=== PATIENT | male | born 1950 ===

== ENCOUNTER 2019-06-10 21:46 | Emergency (ER) | payer SELFPAY ==
--- NOTE | 2019-06-10 22:56 | EDPHYS ---
Physician Documentation [facility] Name: Arnol Chin Age: 68 yrs Sex: Male : 1950 Arrival Date: 06/10/2019 Time: 21:48 Bed 19 Private MD: ED Physician Kwame Sosa HPI: 06/10 22:51 This 68 yrs old Male presents to ER via Ambulatory with complaints of High jessa Blood Pressure. 22:51 The patient has elevated blood pressure and discovered this at home. Onset: The jessa symptoms/episode began/occurred just prior to arrival. Modifying factors: The symptoms are aggravated by movement, The symptoms are alleviated by remaining still. Associated signs and symptoms: Pertinent positives: dizziness. Severity of symptoms: At its worst the blood pressure was mild, in the emergency department the blood pressure is unchanged. The patient has not experienced similar symptoms in the past. Historical: - Allergies: 21:55 No Known Allergies; aa1 - Home Meds: 21:55 Metoprolol Tartrate Oral [Active]; Ramipril Oral [Active]; Singulair Oral [Active]; aa1 - PMHx: 21:55 Hypertension; aa1 - PSHx: 21:55 mitral valve repair; sinus surgery; foot surgery; aa1 - Immunization history:: Adult Immunizations up to date. - Social history:: Smoking status: Patient/guardian denies using tobacco, Patient uses Patient/guardian denies using alcohol, street drugs. - Ebola Screening: : Patient negative for fever greater than or equal to 101.5 degrees Fahrenheit, and additional compatible Ebola Virus Disease symptoms Patient denies exposure to infectious person. ROS: 22:52 Constitutional: Negative for fever, chills, and weight loss, Eyes: Negative for injury, jessa pain, redness, and discharge, ENT: Negative for injury, pain, and discharge, Neck: Negative for injury, pain, and swelling, Cardiovascular: Negative for chest pain, palpitations, and edema, Respiratory: Negative for shortness of breath, cough, wheezing, and pleuritic chest pain, Abdomen/GI: Negative for abdominal pain, nausea, vomiting, diarrhea, and constipation, Back: Negative for injury and pain, : Negative for injury, bleeding, discharge, and swelling, MS/Extremity: Negative for injury and deformity, Skin: Negative for injury, rash, and discoloration, Neuro: Negative for headache, weakness, numbness, tingling, and seizure, Psych: Negative for depression, anxiety, suicide ideation, homicidal ideation, and hallucinations, Allergy/Immunology: Negative for hives, rash, and allergies, Endocrine: Negative for neck swelling, polydipsia, polyuria, polyphagia, and marked weight changes, Hematologic/Lymphatic: Negative for swollen nodes, abnormal bleeding, and unusual bruising. Exam: 22:52 Constitutional: This is a well developed, well nourished patient who is awake, alert, jessa and in no acute distress. Head/Face: Normocephalic, atraumatic. Eyes: Pupils equal round and reactive to light, extra-ocular motions intact. Lids and lashes normal. Conjunctiva and sclera are non-icteric and not injected. Cornea within normal limits. Periorbital areas with no swelling, redness, or edema. ENT: Nares patent. No nasal discharge, no septal abnormalities noted. Tympanic membranes are normal and external auditory canals are clear. Oropharynx with no redness, swelling, or masses, exudates, or evidence of obstruction, uvula midline. Mucous membranes moist. Neck: Trachea midline, no thyromegaly or masses palpated, and no cervical lymphadenopathy. Supple, full range of motion without nuchal rigidity, or vertebral point tenderness. No Meningismus. Chest/axilla: Normal chest wall appearance and motion. Nontender with no deformity. No lesions are appreciated. Cardiovascular: Regular rate and rhythm with a normal S1 and S2. No gallops, murmurs, or rubs. Normal PMI, no JVD. No pulse deficits. Respiratory: Lungs have equal breath sounds bilaterally, clear to auscultation and percussion. No rales, rhonchi or wheezes noted. No increased work of breathing, no retractions or nasal flaring. Abdomen/GI: Soft, non-tender, with normal bowel sounds. No distension or tympany. No guarding or rebound. No evidence of tenderness throughout. Back: No spinal tenderness. No costovertebral tenderness. Full range of motion. Male : Normal genitalia with no discharge or lesions. Skin: Warm, dry with normal turgor. Normal color with no rashes, no lesions, and no evidence of cellulitis. MS/ Extremity: Pulses equal, no cyanosis. Neurovascular intact. Full, normal range of motion. Neuro: Awake and alert, GCS 15, oriented to person, place, time, and situation. Cranial nerves II-XII grossly intact. Motor strength 5/5 in all extremities. Sensory grossly intact. Cerebellar exam normal. Normal gait. Psych: Awake, alert, with orientation to person, place and time. Behavior, mood, and affect are within normal limits. Vital Signs: 21:53 BP 163 / 78; Pulse 54; Resp 16; Temp 96; Pulse Ox 96% ; Weight 97.52 kg; Height 6 ft. 1 aa1 in. (185.42 cm); Pain /10; 22:16 BP 157 / 83; Pulse 64; Resp 18; Pulse Ox 97% on R/A; wh 23:00 BP 148 / 86 Supine; Pulse 73; Resp 18; Pulse Ox 98% on R/A; mw2 23:02 BP 144 / 81 Sitting; Pulse 73; Resp 18; Pulse Ox 97% on R/A; mw2 23:04 BP 138 / 84 Standing; Pulse 81; Resp 19; Pulse Ox 100% ; 2 06/11 00:30 BP 147 / 77; Pulse 67; Resp 18; Pulse Ox 98% ; wh 06/10 21:53 Body Mass Index 28.37 (97.52 kg, 185.42 cm) aa1 MDM: 06/10 22:39 Patient medically screened. [facility] 22:53 Data reviewed: vital signs, nurses notes, EKG. [facility] 06/10 23:04 Order name: Basic Metabolic Panel; Complete Time: 00:14 [facility] 06/10 23:04 Order name: CBC with Diff; Complete Time: 00:14 [facility] 06/10 23:04 Order name: LFT's; Complete Time: 00:14 [facility] 06/10 23:04 Order name: Magnesium; Complete Time: 00:14 [facility] 06/10 23:04 Order name: NT PRO-BNP; Complete Time: 00:14 [facility] 06/10 23:04 Order name: PT-INR; Complete Time: 00:14 [facility] 06/10 22:51 Order name: EKG; Complete Time: 22:51 [facility] 06/10 22:51 Order name: EKG - Nurse/Tech; Complete Time: 23:12 [facility] 06/10 22:51 Order name: Orthostatics; Complete Time: 23:07 [facility] 06/10 23:04 Order name: Troponin (emerg Dept Use Only); Complete Time: 00:14 [facility] 06/10 23:04 Order name: XRAY Chest (1 view) [facility] 06/11 00:31 Order name: CBC Smear Scan [facility] 06/10 23:04 Order name: Cardiac monitoring; Complete Time: 23:12 [facility] 06/10 23:04 Order name: IV Saline Lock; Complete Time: 23:12 [facility] 06/10 23:04 Order name: Labs collected and sent; Complete Time: 23:12 [facility] 06/10 23:04 Order name: O2 Per Protocol; Complete Time: 23:07 [facility] 06/10 23:04 Order name: O2 Sat Monitoring; Complete Time: 23:07 [facility] Administered Medications: 23:30 Drug: Meclizine 25 mg Route: PO; 06/11 00:42 Follow up: Response: No adverse reaction 06/10 23:30 Drug: NS 0.9% 500 ml Route: IV; Rate: bolus; Site: right antecubital; 06/11 00:42 Follow up: Response: No adverse reaction; IV Status: Completed infusion Disposition: 06/11/19 00:15 Discharged to Home. Impression: Essential (primary) hypertension, Dizziness and giddiness, Vertiginous syndromes in diseases classified elsewhere, unspecified ear, Elevated white blood cell count. - Condition is Stable. - Discharge Instructions: Dizziness, Hypertension, Hypertension, Tedf-jr-Apre, How to Take Your Blood Pressure, Ewet-nj-Jhrl, Vertigo, Edkd-ik-Xswt, Dizziness, Illa-ut-Xawk, Managing Your Hypertension. - Prescriptions for Meclizine 25 mg Oral Tablet - take 1 tablet by ORAL route every 8 hours As needed; 30 tablet. Zofran 4 mg Oral Tablet - take 1 tablet by ORAL route every 12 hours As needed; 20 tablet. - Medication Reconciliation Form, Thank You Letter, Antibiotic Education, Prescription Opioid Use form. - Follow up: Private Physician; When: 2 - 3 days; Reason: Recheck today's complaints, Continuance of care, Re-evaluation by your physician. Follow up: Lalo Boston; When: 2 - 3 days; Reason: Recheck today's complaints, Continuance of care, Re-evaluation by your physician. - Problem is new. - Symptoms have improved. Signatures: Dispatcher [employer] EDAysha Klein RN RN aa1 Kwame Sosa MD MD cha Aminata Panda Corrections: (The following items were deleted from the chart) 06/10 23:03 22:54 06/10/2019 22:54 Discharged to Home. Impression: Essential (primary) jessa hypertension; Vertiginous syndromes in diseases classified elsewhere, unspecified ear. Condition is Stable. Forms are Medication Reconciliation Form, Thank You Letter, Antibiotic Education, Prescription Opioid Use. Follow up: Private Physician; When: 2 - 3 days; Reason: Recheck today's complaints, Continuance of care, Re-evaluation by your physician. Problem is new. Symptoms have improved. jessa 06/11 00:44 00:15 06/11/2019 00:15 Discharged to Home. Impression: Essential (primary) wh hypertension; Dizziness and giddiness; Vertiginous syndromes in diseases classified elsewhere, unspecified ear; Elevated white blood cell count. Condition is Stable. Discharge Instructions: Dizziness, Hypertension, Hypertension, Pcvu-[id number], How to Take Your Blood Pressure, Ztom-xy-Keyw, Vertigo, Udhs-ia-Fiqa, Dizziness, Kxaw-vq-Dyll, Managing Your Hypertension. Prescriptions for Meclizine 25 mg Oral Tablet - take 1 tablet by ORAL route every 8 hours As needed; 21 tablet, Zofran 4 mg Oral Tablet - take 1 tablet by ORAL route every 12 hours As needed; 14 tablet, Meclizine 25 mg Oral Tablet - take 1 tablet by ORAL route every 8 hours As needed; 30 tablet, Zofran 4 mg Oral Tablet - take 1 tablet by ORAL route every 12 hours As needed; 20 tablet. and Forms are Medication Reconciliation Form, Thank You Letter, Antibiotic Education, Prescription Opioid Use. Follow up: Private Physician; When: 2 - 3 days; Reason: Recheck today's complaints, Continuance of care, Re-evaluation by your physician. Follow up: Llao Boston; When: 2 - 3 days; Reason: Recheck today's complaints, Continuance of care, Re-evaluation by your physician. Problem is new. Symptoms have improved. jessa
--- NOTE | 2019-06-10 22:56 | ER ---
Nurse's Notes [facility] Name: Arnol Chin Age: 68 yrs Sex: Male : 1950 Arrival Date: 06/10/2019 Time: 21:48 Bed 19 Private MD: Diagnosis: Essential (primary) hypertension;Dizziness and giddiness;Vertiginous syndromes in diseases classified elsewhere, unspecified ear;Elevated white blood cell count Presentation: 06/10 21:51 Presenting complaint: Patient states: I checked my blood pressure today at work and it aa1 was high. I feel unsteady and my vision seems blurry. I feel a little sick to my stomach. Transition of care: patient was not received from another setting of care. Onset of symptoms was June 10, 2019. Risk Assessment: Do you want to hurt yourself or someone else? Patient reports no desire to harm self or others. Initial Sepsis Screen: Does the patient meet any 2 criteria? Does the patient have a suspected source of infection?. Care prior to arrival: None. 21:51 Method Of Arrival: Ambulatory aa1 21:51 Acuity: MARIA ELENA 3 aa1 Historical: - Allergies: 21:55 No Known Allergies; aa1 - Home Meds: 21:55 Metoprolol Tartrate Oral [Active]; Ramipril Oral [Active]; Singulair Oral [Active]; aa1 - PMHx: 21:55 Hypertension; aa1 - PSHx: 21:55 mitral valve repair; sinus surgery; foot surgery; aa1 - Immunization history:: Adult Immunizations up to date. - Social history:: Smoking status: Patient/guardian denies using tobacco, Patient uses Patient/guardian denies using alcohol, street drugs. - Ebola Screening: : Patient negative for fever greater than or equal to 101.5 degrees Fahrenheit, and additional compatible Ebola Virus Disease symptoms Patient denies exposure to infectious person. Screenin:15 Abuse screen: Denies threats or abuse. Denies injuries from another. Nutritional wh screening: No deficits noted. Tuberculosis screening: No symptoms or risk factors identified. Fall Risk None identified. Assessment: 22:15 General: Appears in no apparent distress. Behavior is calm, cooperative, appropriate wh for age. Pain: Denies pain. Neuro: Level of Consciousness is awake, alert, obeys commands, Oriented to person, place, time, situation, Appropriate for age. Cardiovascular: Heart tones S1 S2. Respiratory: Airway is patent Respiratory effort is even, unlabored, Respiratory pattern is regular, symmetrical. GI: Abdomen is flat, non-distended. : No signs and/or symptoms were reported regarding the genitourinary system. EENT: No signs and/or symptoms were reported regarding the EENT system. Derm: Skin is intact, is healthy with good turgor, Skin is pink, warm \T\ dry. normal. Musculoskeletal: Circulation, motion, and sensation intact. 23:30 Reassessment: Patient appears in no apparent distress at this time. No changes from previously documented assessment. Patient and/or family updated on plan of care and expected duration. Pain level reassessed. Patient is alert, oriented x 3, equal unlabored respirations, skin warm/dry/pink. Patient denies pain at this time. 06/11 00:40 Reassessment: Patient appears in no apparent distress at this time. No changes from previously documented assessment. Patient and/or family updated on plan of care and expected duration. Pain level reassessed. Patient is alert, oriented x 3, equal unlabored respirations, skin warm/dry/pink. Patient denies pain at this time. Vital Signs: 06/10 21:53 BP 163 / 78; Pulse 54; Resp 16; Temp 96; Pulse Ox 96% ; Weight 97.52 kg; Height 6 ft. 1 aa1 in. (185.42 cm); Pain 1/10; 22:16 BP 157 / 83; Pulse 64; Resp 18; Pulse Ox 97% on R/A; wh 23:00 BP 148 / 86 Supine; Pulse 73; Resp 18; Pulse Ox 98% on R/A; mw2 23:02 BP 144 / 81 Sitting; Pulse 73; Resp 18; Pulse Ox 97% on R/A; mw2 23:04 BP 138 / 84 Standing; Pulse 81; Resp 19; Pulse Ox 100% ; mw2 06/11 00:30 BP 147 / 77; Pulse 67; Resp 18; Pulse Ox 98% ; wh 06/10 21:53 Body Mass Index 28.37 (97.52 kg, 185.42 cm) aa1 ED Course: 06/10 21:48 Patient arrived in ED. as 21:52 Triage completed. aa1 21:55 Arm band placed on right wrist. aa1 22:14 Aminata Panda is Primary Nurse. 22:16 Patient has correct armband on for positive identification. Placed in gown. Bed in low wh position. Call light in reach. Side rails up X 1. Pulse ox on. NIBP on. 22:39 Kwame Sosa MD is Attending Physician. [facility] 23:10 Inserted saline lock: 20 gauge in right antecubital area, using aseptic technique. Blood collected. By Alexis WORK CAR OPERATOR. 23:29 XRAY Chest (1 view) In Process Unspecified. EDWY 06/11 00:15 Lalo Boston MD is Referral Physician. [facility] 00:42 No provider procedures requiring assistance completed. IV discontinued, intact, bleeding controlled, No redness/swelling at site. Administered Medications: 06/10 23:30 Drug: Meclizine 25 mg Route: PO; 06/11 00:42 Follow up: Response: No adverse reaction 06/10 23:30 Drug: NS 0.9% 500 ml Route: IV; Rate: bolus; Site: right antecubital; 06/11 00:42 Follow up: Response: No adverse reaction; IV Status: Completed infusion Outcome: 06/10 22:54 Discharge ordered by . [facility] 06/11 00:15 Discharge ordered by . [facility] 00:43 Discharged to home ambulatory. 00:43 Condition: stable 00:43 Discharge instructions given to patient, Instructed on discharge instructions, follow up and referral plans. medication usage, POC HTN, Vertigo and dizziness Demonstrated understanding of instructions, follow-up care, medications, POC Prescriptions given X 2. 00:44 Patient left the ED. Signatures: Dispatcher [employer] EDWY Aysha Andujar, RN RN aa1 Kwame Sosa MD MD cha Martinez, Amelia as Aimnata Panda Tan Yang mw2
[2019-06-10] MEDS ORDERED: MECLIZINE HCL 12.5 MG TAB ONE (23:03)
[2019-06-10] MEDS ORDERED: NA CHLORIDE 0.9% 500 ML ONE (23:19)
[2019-06-10 23:50] LABS: Basophils % 0.1 % (0-1.3); Hematocrit 44.9 % (39.6-49.0); Lymphocytes % 6.3 % (15.3-44.8); MPV 8.8 fL (7.6-11.3); RBC Red Blood Cell Count 5.27 M/uL (4.33-5.43)
[2019-06-10 23:51] LABS: Protime INR 0.97
[2019-06-11 00:07] LABS: ALT/SGPT 26 U/L (12-78); AST/SGOT 24 U/L (15-37); Alkaline Phosphatase 78 U/L (45-117); BUN Blood Urea Nitrogen 14 mg/dL (7-18); Bicarbonate 29 mmol/L (21-32); Bilirubin Direct 0.2 mg/dL (0-0.2); Bilirubin Total 0.6 mg/dL (0.2-1.0); Glucose Level 125 mg/dL (74-106); Magnesium 2.2 mg/dL (1.8-2.4); NT PRO-BNP 164 pg/mL (<125); Potassium 3.9 mmol/L (3.5-5.1); Protein, Total 7.4 g/dL (6.4-8.2); Sodium Level 140 mmol/L (136-145); Troponin (Emerg Dept Use Only) < 0.02 ng/mL (0.0-0.045)
[2019-06-11 00:13] LABS: Blood Morphology Comment NOT SEEN (NOT SEEN); Platelet Estimate ADEQ; Urine White Blood Cell Casts OK
[2019-06-11 02:41] VITALS: TEMP 96
[2019-06-11 02:47] VITALS: BP 147/77; O2SAT 98
--- NOTE | 2019-06-11 08:31 | RAD REPORT ---
EXAM DESCRIPTION: RAD - Chest Single View - 06/10/2019 11:29 pm CLINICAL HISTORY: COUGH Chest pain. COMPARISON: No comparisons FINDINGS: Portable technique limits examination quality. The lungs are grossly clear. The heart is normal in size. Sternotomy wires. IMPRESSION: No acute intrathoracic process suspected.
--- NOTE | 2019-06-11 08:57 | EKG ---
Test Date: 2019-06-10 Test Time: 22:59:50 [employer]/Photovoltaic Installer: GLORIA MEASUREMENT RESULTS: Intervals: Rate: 73 OK: 322 QRSD: 94 QT: 436 QTc: 480 [place]: P: 77 OK: 322 QRS: -12 T: 37 INTERPRETIVE STATEMENTS: Sinus rhythm with 1st degree AV block Prolonged QT Abnormal ECG No previous ECG available for comparison Electronically Signed On 06-11-19 08:56:23 SHOOK MACHINE OPERATOR by Vitaliy Mao
== END 2019-06-11 00:44 | disposition home or self-care (01) ==
LOC: ER 21:46
DX: I10 Essential (primary) hypertension (principal); H82.9 Vertiginous syndromes in diseases classified elsewhere, unspecified ear; D72.829 Elevated white blood cell count, unspecified
CPT/HCPCS: 36415; 71045; 80048; 80076; 83735; 83880; 84484; 85025; 85610; 93005; 96360; 99284; J7040; J8597